=== PATIENT | male | born 1980 | race Caucasian/White ===

== ENCOUNTER 2024-06-18 00:13 | Emergency (ER) | payer OTHER ==
[2024-06-18] MEDS: Ketorolac 30 MG/ML SDV IM ONE (00:35)
== END 2024-06-18 01:20 | disposition home or self-care (01) ==
LOC: FB.ED 00:13
DX: S83.91XA Sprain of unspecified site of right knee, initial encounter (principal); X50.9XXA Other and unspecified overexertion or strenuous movements or postures, initial encounter
CPT/HCPCS: 73562; 96372; 99283; J1885